=== PATIENT | female | born 1950 | race Caucasian/White ===

== ENCOUNTER → 2016-08-27 | Outpatient (CLI) | payer MEDICARE, OTHER ==
[~2016-08-27] MED LIST: ASPIRIN EC81 MG PO; CALCIUM 600 +1 EAC6 PO; LIPITOR20 M1 PO
== END | disposition disaster alternative care site (69) ==
LOC: GBCOE 11:10
DX: M81.0 Age-related osteoporosis without current pathological fracture (principal); M25.559 Pain in unspecified hip; M16.0 Bilateral primary osteoarthritis of hip; M85.88 Other specified disorders of bone density and structure, other site